=== PATIENT | female | born 1955 | race Caucasian/White ===

== ENCOUNTER 2021-07-10 09:23 | Outpatient (CLI) | payer OTHER | END 2021-07-10 09:29 | disposition home or self-care (01) | LOC: RX STUDY 09:23 | PROVIDERS: ATTEND Internal Medicine Gastroenterology | DX: R13.19 Other dysphagia (principal) ==

== ENCOUNTER 2023-04-01 10:13 | Inpatient (IN) | payer OTHER ==
[~2023-04-01] VITALS: Ht 165.1 cm; Wt 81.6 kg
[2023-04-01] MEDS ORDERED: ZESTRIL20 MG PO (13:13)
[2023-04-01] MEDS ORDERED: SYNTHROID50 MCG PO (13:15)
[2023-04-01] MEDS ORDERED: FOSAMAX70 MG PO (13:15)
[2023-04-01] MEDS ORDERED: ZEGERID 40 MG1 EACH PO (13:15)
[2023-04-01] MEDS ORDERED: NORVASC2.5 MG PO (13:16)
[2023-04-01] MEDS ORDERED: HYDROCHLOROTHIA25 MG PO (13:16)
[2023-04-06] MEDS ORDERED: OMEPRAZOLE20 MG (08:05)
[2023-04-06] MEDS ORDERED: FAMOTIDINE40 MG (08:05)
[2023-04-08] MEDS ORDERED: INTEGRA PLUS C1 EACH PO (08:27)
[2023-04-08] MEDS ORDERED: BACTRIM DS TAB1 EACH PO (08:27)
[2023-04-08] MEDS ORDERED: OXYC1TAB9 PO (08:27)
[2023-04-08] MEDS ORDERED: XARELTO10 MG PO (08:27)
== END 2023-04-09 10:25 | disposition home or self-care (01) | DRG 470 ==
LOC: O/R 04-06 05:05 → SURH 04-06 05:05 → SURG 04-06 11:00 → SURH 04-06 12:06 → SURG 04-06 14:00 → SURH 04-09 10:25
PROVIDERS: ADMIT Orthopaedic Surgery Sports Medicine; ATTEND Orthopaedic Surgery Sports Medicine
PROC: 3E0F7SF Introduction of Other Gas into Respiratory Tract, Via Natural or Artificial Opening (ICD-10-PCS; 2023-04-06)
PROC: 0SRC0J9 Replacement of Right Knee Joint with Synthetic Substitute, Cemented, Open Approach (ICD-10-PCS; principal; 2023-04-06 14:00)
DX: M17.11 Unilateral primary osteoarthritis, right knee (principal); I10 Essential (primary) hypertension; E03.9 Hypothyroidism, unspecified